=== PATIENT | male | born 1975 | race Caucasian/White ===

== ENCOUNTER 2016-10-08 23:01 | Emergency (ER) | payer BC, OTHER ==
--- NOTE | 2016-10-08 23:04 | EDM.PDOC ---
ED HPI GENERAL MEDICAL PROBLEM - General Stated Complaint: HEADACHE/SWELLING Time Seen by Provider: 10/08/16 23:04 Source of Information: Reports: Patient - History of Present Illness INITIAL COMMENTS - FREE TEXT/NARRATIVE: HISTORY AND PHYSICAL: History of present illness: []Patient presents with 2 separate complaints First complaint is had chronic headache over the last 2 months which has not responded to caffeine and aspirin some improvement some days with the aspirin seems to be right unilateral no light or noise sensitivity. At this time he rates headache 2 out of 10. Does some days get up to an 8 out of 10 Second complaint is that of harsh cough increasing in severity over the last week no fever nausea vomiting chills sweats does feel fatigued he has had some postauricular lymph node swelling which he is concerned about his not present at this time Patient states he has had a history of cluster headache, has smoking history of 1-2 packs daily since teens Review of systems: As per history of present illness and below otherwise all systems reviewed and negative. Past medical history: As per history of present illness and as reviewed below otherwise noncontributory. Surgical history: As per history of present illness and as reviewed below otherwise noncontributory. Social history: No reported history of drug or alcohol abuse. Family history: As per history of present illness and as reviewed below otherwise noncontributory. Physical exam: HEENT: Atraumatic, normocephalic, pupils reactive, negative for conjunctival pallor or scleral icterus, mucous membranes moist, throat clear, neck supple, nontender, trachea midline. No lymph node swelling no meningeal sign Lungs: Clear to auscultation, breath sounds equal bilaterally, chest nontender. Heart: S1S2, regular, negative for clicks, rubs, or JVD. Abdomen: Soft, nondistended, nontender. Negative for masses or hepatosplenomegaly. Negative for costovertebral tenderness. Pelvis: Stable nontender. Genitourinary: Deferred. Rectal: Deferred. Extremities: Atraumatic, negative for cords or calf pain. Neurovascular unremarkable. Neuro: Awake, alert, oriented. Cranial nerves II through XII unremarkable. Cerebellum unremarkable. Motor and sensory unremarkable throughout. Exam nonfocal. Diagnostics: []Head CT without Chest 2 views Therapeutics: []1 L normal saline bolus Medrol 125 mg IV DuoNeb Toradol 30 mg IV Azithromycin 250 mg Z-Calderon Medrol Dosepak HFA Impression: []Cluster headaches Acute bronchitis Definitive disposition and diagnosis as appropriate pending reevaluation and review of above. Head Pain Score (Numeric/FACES): 8 Throat Pain Score (Numeric/FACES): 4 - Related Data Allergies Allergy/AdvReac Type Severity Reaction Status Date / Time codeine Allergy Other Verified 10/08/16 23:42 Penicillins Allergy Hives Verified 10/08/16 23:04 Home Meds: Home Meds . [No Known Home Meds] 03/07/14 [History] Social & Family History - Tobacco Use Smoking Status *Q: Unknown Ever Smoked Years of Tobacco use: 20 - Alcohol Use Days Per Week of Alcohol Use: 0 - Recreational Drug Use Recreational Drug Use: No ED ROS GENERAL - Review of Systems Review Of Systems: ROS reveals no pertinent complaints other than HPI. ED EXAM, GENERAL - Physical Exam Exam: See Below Course - Vital Signs Last Recorded V/S: Last Vital Signs Temp 36.6 C 10/08/16 23:04 Pulse 99 10/08/16 23:04 Resp 17 10/08/16 23:04 BP 144/69 H 10/08/16 23:04 Pulse Ox 95 10/08/16 23:04 - Orders/Labs/Meds Orders: Active Orders 24 hr Category Date Time Status RT Aerosol Therapy [RC] ASDIRECTED Care 10/08/16 23:15 Active Chest 2V [CR] Stat Exams 10/08/16 23:14 Taken Head wo Cont [CT] Stat Exams 10/08/16 23:14 Taken Azithromycin [Zithromax] Med 10/09/16 00:29 Stat 500 mg PO NOW STA Meds: Medications Discontinued Medications Generic Name Dose Route Start Last Admin Trade Name Freq PRN Reason Stop Dose Admin Albuterol/Ipratropium 3 ml 10/08/16 23:15 10/08/16 23:48 Duoneb 3.0-0.5 Mg/3 Ml NEB 10/08/16 23:16 3 ml ONETIME ONE Administration Sodium Chloride 1,000 mls @ 999 mls/hr 10/08/16 23:15 10/08/16 23:41 Normal Saline IV 10/09/16 00:15 999 mls/hr STAT ONE Administration Ketorolac Tromethamine 30 mg 10/08/16 23:15 10/08/16 23:44 Toradol IVPUSH 10/08/16 23:16 30 mg ONETIME ONE Administration Methylprednisolone Sodium Succinate 125 mg 10/08/16 23:15 10/08/16 23:46 Solu-Medrol IVPUSH 10/08/16 23:16 125 mg ONETIME ONE Administration Ondansetron HCl 8 mg 10/08/16 23:15 10/08/16 23:41 Zofran IVPUSH 10/08/16 23:16 8 mg ONETIME ONE Administration Departure - Departure Time of Disposition: 00:30 Disposition: Home, Self-Care 01 Condition: Good Clinical Impression: Acute bronchitis, Head ache Clinical Impression: (Ruled Out): Migraine - Discharge Information Additional Instructions: Medication as prescribed Return if symptoms persist or worsen Follow-up with primary care in 2 weeks The following information is given to patients seen in the emergency department who are being discharged to home. This information is to outline your options for follow-up care. We provide all patients seen in our emergency department with a follow-up referral. The need for follow-up, as well as the timing and circumstances, are variable depending upon the specifics of your emergency department visit. If you don't have a primary care physician on staff, we will provide you with a referral. We always advise you to contact your personal physician following an emergency department visit to inform them of the circumstance of the visit and for follow-up with them and/or the need for any referrals to a consulting specialist. The emergency department will also refer you to a specialist when appropriate. This referral assures that you have the opportunity for follow-up care with a specialist. All of these measure are taken in an effort to provide you with optimal care, which includes your follow-up. Under all circumstances we always encourage you to contact your private physician who remains a resource for coordinating your care. When calling for follow-up care, please make the office aware that this follow-up is from your recent emergency room visit. If for any reason you are refused follow-up, please contact the [facility] emergency department at and asked to speak to the emergency department charge nurse. - My Orders Last 24 Hours: My Active Orders 10/08/16 23:14 Chest 2V [CR] Stat Head wo Cont [CT] Stat 10/08/16 23:15 RT Aerosol Therapy [RC] ASDIRECTED 10/09/16 00:29 Azithromycin [Zithromax] 500 mg PO NOW STA - Assessment/Plan Last 24 Hours: My Active Orders 10/08/16 23:14 Chest 2V [CR] Stat Head wo Cont [CT] Stat 10/08/16 23:15 RT Aerosol Therapy [RC] ASDIRECTED 10/09/16 00:29 Azithromycin [Zithromax] 500 mg PO NOW STA
[2016-10-08] MEDS ORDERED: Ketorolac 30 MG/ML SDV IVPUSH ONE (23:15)
[2016-10-08] MEDS ORDERED: Sodium Chloride 0.9% 1,000 ML IV ONE (23:15)
[2016-10-08] MEDS ORDERED: methylPREDNISolone Sodium Succinate 125 MG/2 ML SDV IVPUSH ONE (23:15)
[2016-10-08] MEDS ORDERED: Ondansetron 4 MG/2 ML SDV IVPUSH ONE (23:15)
[2016-10-08] MEDS ORDERED: Albuterol/Ipratropium 3.0-0.5 MG/3 ML Neb Soln NEB ONE (23:15)
[2016-10-09] MEDS ORDERED: Azithromycin 250 MG Tab PO STA (00:29)
[2016-10-09 00:56] VITALS: BP 114/66
--- NOTE | 2016-10-10 13:14 | CR ---
EXAM DATE: 10/08/16 PATIENT'S AGE: 41 Patient: JEAN ROBLEDO Facility: [place], [place] Site . Site : 1975 Study: XRay Chest [id number]/[id number] 11:37:42 PM Ordering Physician: Ruddy Ho Final Report: INDICATION: Chest pain TECHNIQUE: Chest 2 views. COMPARISON: 03/07/2014 FINDINGS: Cardiovascular and mediastinum: Heart size and vasculature are normal in caliber and appearance. Mediastinum is within normal limits. Lungs and pleural spaces: Lungs are clear. No sign of infiltrate or mass. No sign of pleural effusion. No pneumothorax. Bones and soft tissues: No significant findings. IMPRESSION: No sign of acute disease. Dictated by Martinez Pond MD @ 10/09/2016 12:14:43 AM Dictated by: Martinez Pond MD @ 10/09/2016 00:14:49 (Electronic Signature) Report Signed by Proxy. [facility]PITALPineda
--- NOTE | 2016-10-10 13:14 | CT ---
EXAM DATE: 10/08/16 PATIENT'S AGE: 41 Patient: JEAN ROBLEDO Facility: [place], [place] Site . Site : 1975 Study: CT Head [id number]/8/2017 11:30:58 PM Ordering Physician: Ruddy Ho Final Report: INDICATION: Pain TECHNIQUE: CT head without contrast. COMPARISON: None available FINDINGS: The ventricles and sulci demonstrate normal configuration and size for the patient`s age. There is no mass effect or midline shift. There is no loss of figueroa-white differentiation. There is no evidence of a gross acute intracranial hemorrhage. No acute calvarial fracture is seen. There is mild mucosal thickening in the right maxillary sinus with a small mucosal retention cyst or polyp. The mastoid air cells are clear. The visualized orbits are within normal limits. IMPRESSION: No evidence of a gross acute intracranial hemorrhage, mass effect or loss of figueroa-white differentiation. Mild right maxillary sinus disease. Dictated by Martinez Pond MD @ 10/09/2016 12:12:43 AM Dictated by: Martinez Pond MD @ 10/09/2016 00:12:48 (Electronic Signature) Report Signed by Proxy. DARELL
== END 2016-10-09 00:50 | disposition home or self-care (01) ==
LOC: MW.ED 23:01
DX: G44.009 Cluster headache syndrome, unspecified, not intractable (principal); J20.9 Acute bronchitis, unspecified; Z88.5 Allergy status to narcotic agent; Z88.0 Allergy status to penicillin
CPT/HCPCS: 70450; 71020; 96361; 96374; 96375; 99284; A9270; J1885; J2405; J2930; J7040; 99282